=== PATIENT | female | born 1950 | race Caucasian/White ===

== ENCOUNTER 2016-12-12 11:58 | Inpatient (IN) | payer MEDICARE, BC ==
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
[2016-12-12] MEDS ORDERED: Adenosine 6 MG/2 ML SDV IVPUSH ONE (12:50)
[2016-12-12] MEDS ORDERED: Sodium Chloride 0.9% 1,000 ML IV ONE (13:00)
--- NOTE | 2016-12-12 13:34 | CR ---
Chest 2V INDICATION: atrial flutter, shortness of breath FINDINGS: Comparison 07/05/2013. Heart size is accentuated by portable AP technique. Old fracture defo rmity distal right clavicle. Chest otherwise negative.
[2016-12-12] MEDS ORDERED: Diltiazem 25 MG/5 ML SDV IVPUSH ONE (14:18)
[2016-12-12] MEDS ORDERED: Diltiazem 100 MG in Sodium Chloride 0.9% 100 ML IV SCH (14:30)
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
[2016-12-12] MEDS ORDERED: Magnesium Hydroxide 400 MG/5 ML Susp 30 ML Cup PO PRN (15:50)
[2016-12-12] MEDS ORDERED: Acetaminophen 325 MG Tab PO PRN (15:50)
[2016-12-12] MEDS ORDERED: Docusate Sodium 100 MG Cap PO PRN (15:50)
[2016-12-12] MEDS ORDERED: Zolpidem 5 MG Tab PO PRN (15:50)
[2016-12-12] MEDS ORDERED: Sodium Chloride 0.9% 10 ML Syringe FLUSH PRN (15:50)
[2016-12-12] MEDS ORDERED: oxyCODONE 5 MG Tab PO PRN (15:50)
[2016-12-12] MEDS ORDERED: Polyethylene Glycol 3350 Powder 17 GM Packet PO PRN (15:50)
[2016-12-12] MEDS ORDERED: Ondansetron 4 MG/2 ML SDV IV PRN (15:50)
[2016-12-12] MEDS ORDERED: Warfarin 2.5 MG Tab PO SCH ×2 (16:00→20:00)
--- NOTE | 2016-12-13 09:52 | PCM.DCSUM1 ---
Discharge Summary - Hospital Course Brief History: Ms. Campos is a 66-year-old woman who was admitted through the emergency department for further management of atrial flutter with 2-1 conduction and rapid ventricular response. - Discharge Data Discharge Date: 12/13/16 Discharge Disposition: Home, Self-Care 01 Condition: Good - Discharge Diagnosis/Problem(s) (1) Atrial flutter SNOMED Code(s): 1122350 ICD Code: I48.92 - UNSPECIFIED ATRIAL FLUTTER Status: Acute Priority: Medium Current Visit: Yes Qualifiers: Atrial flutter type: atypical Qualified Code(s): I48.4 - Atypical atrial flutter - Patient Summary/Data Hospital Course: Ms. Campos is a 66-year-old woman who's had a past history of difficulty with intermittent episodes of tachycardia. In the past these have occurred approximately 3 times per year but have never been documented on rhythm strips or with EKG. She was assumed to have atrial fibrillation and was started on oral anticoagulation with warfarin a few years ago. She felt well on the day prior to admission but early in the morning of admission when she awoke noted a rapid heart rate. After the rhythm continued at home and did not spontaneously convert she presented to the emergency department in the afternoon for further evaluation and management. On initial rhythm strips and EKG she was noted to have a rapid narrow complex rhythm. She was given a dose of adenocard which did slow the rhythm enough to determine that she was in atrial flutter. Options for management were discussed with the patient and she was admitted to the hospital and started on IV Cardizem infusion after Cardizem bolus. In the early evenings she spontaneously converted to sinus bradycardia after transient episode of junctional rhythm. She remained in sinus rhythm up until the time of discharge. She will remain on anticoagulation with warfarin, no further medications will be added at this time. Activity will be as tolerated and she will resume her usual diet. Follow-up appointment will be scheduled with her primary care provider Dr. Yeboah within 1 week and a follow-up appointment with her oreman will be scheduled as soon as possible. - Patient Instructions Diet: Usual Diet as Tolerated Activity: As Tolerated Other/Special Instructions: Please schedule follow-up appointment with Dr. Yeboah within 1 week. Please schedule follow-up appointment with cardiology as soon as possible. - Discharge Plan Home Medications: Home Meds Warfarin Sodium 1.5 mg PO DAILY #0 12/13/16 [Rx] Referrals: Wisam Yeboah MD [Primary Care Provider] - - Patient Data Vitals - Most Recent: Last Vital Signs Temp 98.7 F 12/13/16 00:00 Pulse 61 12/13/16 08:29 Resp 16 12/13/16 08:29 BP 122/77 12/13/16 08:54 Pulse Ox 96 12/13/16 08:29 Weight - Most Recent: 166 lb 10.711 oz I&O - Last 24 hours: Intake & Output 12/12/16 12/13/16 12/13/16 22:59 06:59 14:59 Intake Total 360 Output Total 200 Balance -200 360 Lab Results - Last 24 hrs: Laboratory Results - last 24 hr 12/13/16 12/13/16 12/13/16 Range/Units 04:32 04:32 04:32 WBC 7.2 (4.5-11.0) K/uL RBC 4.58 (3.30-5.50) M/uL Hgb 14.0 (12.0-15.0) g/dL Hct 41.9 (36.0-48.0) % MCV 92 (80-98) fL MCH 31 (27-31) pg MCHC 33 (32-36) % Plt Count 266 (150-400) K/uL Neut % (Auto) 53 (36-66) % Lymph % (Auto) 31 (24-44) % [place] % (Auto) 12 H (2-6) % Eos % (Auto) 3 (2-4) % Baso % (Auto) 1 (0-1) % PT 26.1 H (9.5-12.0) sec INR 2.35 H (0.80-1.20) Sodium 141 (140-148) mmol/L Potassium 3.8 (3.6-5.2) mmol/L Chloride 109 H (100-108) mmol/L Carbon Dioxide 24 (21-32) mmol/L Anion Gap 11.8 (5.0-14.0) mmol/L BUN 12 (7-18) mg/dL Creatinine 0.9 (0.6-1.0) mg/dL Est Cr Clr Drug Dosing TNP Estimated GFR (MDRD) > 60 (>60) Glucose 104 (74-106) mg/dL Calcium 8.3 L (8.5-10.1) mg/dL Med Orders - Current: Current Medications Acetaminophen (Tylenol) 650 mg PO Q4H PRN PRN Reason: Pain (Mild 1-3)/fever Last Admin: 12/12/16 16:18 Dose: 650 mg Docusate Sodium (Colace) 100 mg PO BID PRN PRN Reason: Constipation Diltiazem HCl 100 mg/ Sodium (Chloride) 100 mls @ 5 mls/hr IV TITRATE MAIKOL; 5 MG /HR PRN Reason: Protocol Last Titration: 12/12/16 17:35 Dose: 0 mg/hr, 0 mls/hr Magnesium Hydroxide (Milk Of Magnesia) 30 ml PO Q12H PRN PRN Reason: Constipation Ondansetron HCl (Zofran) 4 mg IV Q4H PRN PRN Reason: Nausea/Vomiting Oxycodone HCl (Oxycodone) 5 mg PO Q4H PRN PRN Reason: Pain (moderate 4-6) Polyethylene Glycol (Miralax) 17 gm PO DAILY PRN PRN Reason: Constipation Sodium Chloride (Saline Flush) 10 ml FLUSH ASDIRECTED PRN PRN Reason: Keep Vein Open Zolpidem Tartrate (Ambien) 5 mg PO BEDTIME PRN PRN Reason: Sleep Discontinued Medications Adenosine (Adenocard) 6 mg IVPUSH NOW ONE Stop: 12/12/16 12:51 Last Admin: 12/12/16 13:06 Dose: 6 mg Diltiazem HCl (Diltiazem) 20 mg IVPUSH ONETIME ONE Stop: 12/12/16 14:19 Last Admin: 12/12/16 14:53 Dose: 20 mg Sodium Chloride (Normal Saline) 1,000 mls @ 999 drops/hr IV .BOLUS ONE Stop: 12/13/16 04:00 Last Admin: 12/12/16 13:06 Dose: 999 drops/hr Warfarin Sodium (Coumadin) 7.5 mg PO DAILY@1999 MAIKOL Stop: 12/12/16 20:00 Warfarin Sodium (Coumadin) 1.5 mg PO ONETIME ONE Stop: 12/12/16 20:01 Last Admin: 12/12/16 20:20 Dose: 1.5 mg Warfarin Sodium (Coumadin) Confirm Administered Dose 1 mg .ROUTE .STK-MED ONE Stop: 12/12/16 20:30 Last Admin: 12/12/16 21:42 Dose: Not Given *Q Meaningful Use (DIS) - VTE *Q VTE Criteria *Q: VTE Pharmacological Contraindications *Q: High INR Value - Stroke *Q Stroke Criteria *Q: - AMI *Q AMI Criteria *Q:
[2016-12-13 10:49] VITALS: BP 130/70
== END 2016-12-13 10:48 | disposition home or self-care (01) | DRG 310 ==
LOC: JP.ED 11:58 → JP.ICU 14:28
PROVIDERS: ADMIT Hospitalist; ATTEND Hospitalist
DX: I48.4 Atypical atrial flutter (principal); Z79.01 Long term (current) use of anticoagulants; R00.0 Tachycardia, unspecified; Z86.73 Personal history of transient ischemic attack (TIA), and cerebral infarction without residual deficits; H54.7 Unspecified visual loss; Z88.1 Allergy status to other antibiotic agents; Z91.040 Latex allergy status; Z88.0 Allergy status to penicillin
CPT/HCPCS: 36415; 71020 ×2; 80053; 82553; 84443; 84484; 85025; 85610; 93005; J0153; J7040; 80048; 93010; 96365; 96374; 96375; 96376; 99284; 99285-25; A9270-GY; J3490; J7030

== ENCOUNTER 2020-06-22 16:58 | Emergency (ER) | payer MEDICARE, BC ==
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
[2020-06-22] MEDS ORDERED: Propofol 200 MG/20 ML SDV IVPUSH ONE (18:06)
[2020-06-22] MEDS ORDERED: Propofol 200 MG/20 ML SDV ONE (18:11)
[2020-06-22 18:35] VITALS: BP 99/64; PULSE 59
== END 2020-06-22 19:07 | disposition home or self-care (01) ==
LOC: JP.ED 16:58
DX: I48.91 Unspecified atrial fibrillation (principal); Z91.040 Latex allergy status; Z88.0 Allergy status to penicillin; Z88.1 Allergy status to other antibiotic agents; Z79.01 Long term (current) use of anticoagulants
CPT/HCPCS: 92960; 93010; 99284; J2704

== ENCOUNTER 2020-07-07 15:10 | Emergency (ER) | payer MEDICARE, BC ==
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
[2020-07-07 15:55] VITALS: BP 107/62; PULSE 57
== END 2020-07-07 16:01 | disposition home or self-care (01) ==
LOC: JP.ED 15:10
DX: I48.0 Paroxysmal atrial fibrillation (principal); Z91.040 Latex allergy status; Z88.0 Allergy status to penicillin; Z88.1 Allergy status to other antibiotic agents; Z79.01 Long term (current) use of anticoagulants; Z86.73 Personal history of transient ischemic attack (TIA), and cerebral infarction without residual deficits; Z90.49 Acquired absence of other specified parts of digestive tract; Z79.899 Other long term (current) drug therapy
CPT/HCPCS: 93005; 93010; 99284-25

== ENCOUNTER 2020-08-06 01:19 | Inpatient (IN) | payer MEDICARE, BC ==
[2020-08-06] MEDS ORDERED: Sodium Chloride 0.9% 10 ML Syringe FLUSH PRN ×2 (01:20→05:20)
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
[2020-08-06] MEDS ORDERED: Diltiazem 25 MG/5 ML SDV IVPUSH ONE (01:38)
[2020-08-06] MEDS ORDERED: Propofol 200 MG/20 ML SDV ONE (03:04)
[2020-08-06] MEDS ORDERED: Diltiazem 100 MG in Sodium Chloride 0.9% 100 ML IV SCH ×2 (03:15→05:30)
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
[2020-08-06] MEDS ORDERED: Ondansetron 4 MG/2 ML SDV IV PRN (05:20)
[2020-08-06] MEDS ORDERED: Polyethylene Glycol 3350 Powder 17 GM Packet PO PRN (05:20)
[2020-08-06] MEDS ORDERED: Acetaminophen 325 MG Tab PO PRN (05:20)
[2020-08-06] MEDS ORDERED: Sotalol 80 MG Tab PO SCH (09:00)
[2020-08-06] MEDS ORDERED: Warfarin 5 MG Tab PO SCH (09:00)
[2020-08-06] MEDS ORDERED: Warfarin 2.5 MG Tab PO ONE (10:00)
[2020-08-06 13:13] VITALS: BP 106/53
[2020-08-06 13:33] VITALS: PULSE 48
--- NOTE | 2020-08-06 14:06 | PCM.DCSUM1 ---
Discharge Summary - Hospital Course Brief History: Ms. Campos is a 70-year-old woman who was admitted through the emergency department with recurrent atrial fibrillation and rapid ventricular response. - Discharge Data Discharge Date: 08/06/20 Discharge Disposition: Home, Self-Care 01 Condition: Stable - Referral to Home Health Primary Care Physician: Wisam Yeboah MD - Discharge Diagnosis/Problem(s) (1) Atrial fibrillation with RVR SNOMED Code(s): 973265461331706 ICD Code: I48.91 - UNSPECIFIED ATRIAL FIBRILLATION Status: Acute Priority: High Current Visit: Yes (2) Paroxysmal atrial fibrillation SNOMED Code(s): 893622812 ICD Code: I48.0 - PAROXYSMAL ATRIAL FIBRILLATION Status: Acute Current Visit: No (3) On Coumadin for atrial fibrillation SNOMED Code(s): 17877704 ICD Code: I48.91 - UNSPECIFIED ATRIAL FIBRILLATION; Z79.01 - INSPECTOR PLUMBING (CURRENT) USE OF ANTICOAGULANTS Status: Chronic Priority: High Current Visit: Yes - Patient Summary/Data Hospital Course: Ms. Campos is a 70-year-old woman who was admitted through the emergency department with weakness, shortness of breath, and mild lightheadedness secondary to atrial fibrillation with rapid ventricular response. She has a previous history of atrial flutter and atrial fibrillation and is status post ablation procedure done in 2017. She did well for a year but then since then has had episodes of recurrent atrial fibrillation. This is her third episode over the past 2 months. She felt well throughout the day yesterday and went to bed. She woke early this morning at approximately 1 AM with rapid heart rate and noted symptoms. On evaluation in the emergency department she was found to be in atrial fibrillation with rapid ventricular response. 3 attempts at cardioversion were performed in the emergency department without success. She has been given a bolus dose of diltiazem and started on a continuous infusion of IV diltiazem. On admission she was continued on the IV diltiazem with somewhat variable rate control, rates continued to be intermittently elevated between 120 and 80. Later in the morning following admission she did convert to sinus bradycardia and remained in that rhythm up until the time of discharge. IV diltiazem was discontinued and rate did improve to the upper 40s and low 50s which is close to her baseline. Episode was reviewed with her EP paint laboratory technician from [facility]. He felt that there were no further good options for medical management. They are going to look at the schedule there and see if they can get her in earlier for her ablation procedure. Activity will be as tolerated and she will resume her usual diet. INR at the time of initial evaluation in the emergency department was subtherapeutic at 1.7. She will follow up with the Coumadin clinic on August 10. Follow-up appointment will be scheduled with her primary care provider within 1 week. - Patient Instructions Diet: Usual Diet as Tolerated Activity: As Tolerated Other/Special Instructions: Follow-up with Coumadin clinic on August 10. Follow-up with primary care provider within 1 week. EP cardiology will contact her concerning possible new date for ablation procedure. - Discharge Plan *PRESCRIPTION DRUG MONITORING PROGRAM REVIEWED*: Not Applicable *COPY OF PRESCRIPTION DRUG MONITORING REPORT IN PATIENT ALEXIS: Not Applicable Home Medications: Home Meds Sotalol HCl [Sotalol] 80 mg PO BID 06/22/20 [History] Warfarin Sodium 5 mg PO MOWEFR@0900 06/22/20 [History] Warfarin [Coumadin] 7.5 mg PO SUTUTHSA@0900 08/06/20 [History] Referrals: Wisam Yeboah MD [Primary Care Provider] - - Discharge Summary/Plan Comment DC Time >30 min.: No - Patient Data Vitals - Most Recent: Last Vital Signs Temp 97.6 F 08/06/20 12:00 Pulse 48 L 08/06/20 13:33 Resp 14 08/06/20 13:00 BP 106/53 L 08/06/20 13:33 Pulse Ox 95 08/06/20 13:00 Weight - Most Recent: 170 lb 6.677 oz I&O - Last 24 hours: Intake & Output 08/05/20 08/06/20 08/06/20 22:59 06:59 14:59 Output Total 350 Balance -350 Lab Results - Last 24 hrs: Laboratory Results - last 24 hr 08/06/20 08/06/20 08/06/20 Range/Units 01:31 01:31 01:31 WBC 7.4 (4.5-11.0) K/uL RBC 5.01 (3.30-5.50) M/uL Hgb 15.4 H (12.0-15.0) g/dL Hct 46.0 (36.0-48.0) % MCV 92 (80-98) fL MCH 31 (27-31) pg MCHC 34 (32-36) % Plt Count 307 (150-400) K/uL Neut % (Auto) 45 (36-66) % Lymph % (Auto) 40 (24-44) % [place] % (Auto) 13 H (2-6) % Eos % (Auto) 2 (2-4) % Baso % (Auto) 1 (0-1) % PT 18.3 H (9.5-12.0) sec INR 1.70 H (0.80-1.20) Sodium 140 (140-148) mmol/L Potassium 4.5 (3.6-5.2) mmol/L Chloride 105 (100-108) mmol/L Carbon Dioxide 24 (21-32) mmol/L Anion Gap 10.8 (5.0-14.0) mmol/L BUN 11 (7-18) mg/dL Creatinine 0.7 (0.6-1.0) mg/dL Est Cr Clr Drug Dosing 60.98 mL/min Estimated GFR (MDRD) > 60 (>60) Glucose 100 (74-106) mg/dL Calcium 9.1 (8.5-10.1) mg/dL Total Bilirubin 0.4 (0.2-1.0) mg/dL AST 35 (15-37) U/L ALT 26 (12-78) U/L Alkaline Phosphatase 122 H (46-116) U/L Troponin I < 0.017 (0.000-0.056) ng/mL Total Protein 7.5 (6.4-8.2) g/dL Albumin 3.7 (3.4-5.0) g/dL Globulin 3.8 H (2.3-3.5) g/dL Albumin/Globulin Ratio 1.0 L (1.2-2.2) Med Orders - Current: Current Medications Acetaminophen (Tylenol) 650 mg PO Q4H PRN PRN Reason: Pain (Mild 1-3)/fever Ondansetron HCl (Zofran) 4 mg IV Q4H PRN PRN Reason: Nausea/Vomiting Polyethylene Glycol (Miralax) 17 gm PO DAILY PRN PRN Reason: Constipation Sodium Chloride (Saline Flush) 10 ml FLUSH ASDIRECTED PRN PRN Reason: Keep Vein Open Sotalol HCl (Betapace) 80 mg PO BID MAIKOL Last Admin: 08/06/20 13:33 Dose: 80 mg Documented by: Discontinued Medications Diltiazem HCl (Diltiazem) 20 mg IVPUSH ONETIME ONE Stop: 08/06/20 01:39 Last Admin: 08/06/20 03:20 Dose: Not Given Documented by: Diltiazem HCl 100 mg/ Sodium (Chloride) 100 mls @ 5 mls/hr IV TITRATE MAIKOL; Protocol Last Titration: 08/06/20 04:38 Dose: 10 mg/hr, 10 mls/hr Documented by: Diltiazem HCl 100 mg/ Sodium (Chloride) 100 mls @ 5 mls/hr IV TITRATE MAIKOL; Protocol Propofol (Diprivan 20 Ml) Confirm Administered Dose 200 mg .ROUTE .STK-MED ONE Stop: 08/06/20 03:05 Sodium Chloride (Saline Flush) 10 ml FLUSH ASDIRECTED PRN PRN Reason: Keep Vein Open Last Admin: 08/06/20 03:19 Dose: 10 ml Documented by: Warfarin Sodium (Coumadin) 5 mg PO DAILY [facility] Warfarin Sodium (Coumadin) 7.5 mg PO ONETIME ONE Stop: 08/06/20 10:01 Last Admin: 08/06/20 10:02 Dose: 7.5 mg Documented by: - Exam Quality Assessment: Reports: DVT Prophylaxis General: Reports: Alert, Oriented, Cooperative, No Acute Distress Lungs: Reports: Clear to Auscultation, Normal Respiratory Effort Cardiovascular: Reports: Regular Rhythm, Bradycardia GI/Abdominal Exam: Soft, Non-Tender, No Organomegaly, No Distention Extremities: Non-Tender, No Pedal Edema *Q Meaningful Use (DIS) - VTE *Q VTE Pharmacological Contraindications *Q: High INR Value
== END 2020-08-06 15:20 | disposition home or self-care (01) | DRG 310 ==
LOC: JP.ED 01:19 → JP.ICU 04:50
PROVIDERS: ADMIT Hospitalist; ATTEND Hospitalist
DX: I48.0 Paroxysmal atrial fibrillation (principal); H54.7 Unspecified visual loss; E78.00 Pure hypercholesterolemia, unspecified; Z79.01 Long term (current) use of anticoagulants; Z91.040 Latex allergy status; Z88.0 Allergy status to penicillin; Z88.1 Allergy status to other antibiotic agents; Z86.73 Personal history of transient ischemic attack (TIA), and cerebral infarction without residual deficits
CPT/HCPCS: 36415; 80053; 84484; 85025; 85610; 92960; 93005; 93010; 96365; 99284; 99285; J2704; J3490; 99235; A9270-GY

== ENCOUNTER 2024-03-10 12:20 | Emergency (ER) | payer OTHER, MEDICARE, BC ==
[2024-03-10 13:09] VITALS: BP 159/80; PULSE 83
[2024-03-10] MEDS: Acetaminophen 500 MG Tab PO ONE (14:41)
== END 2024-03-10 16:17 | disposition home or self-care (01) ==
LOC: JP.ED 12:20
DX: S16.1XXA Strain of muscle, fascia and tendon at neck level, initial encounter (principal); Z91.040 Latex allergy status; Z88.0 Allergy status to penicillin; Z88.8 Allergy status to other drugs, medicaments and biological substances; Z79.01 Long term (current) use of anticoagulants; Z79.899 Other long term (current) drug therapy; V49.49XA Driver injured in collision with other motor vehicles in traffic accident, initial encounter; Y93.89 Activity, other specified; I48.91 Unspecified atrial fibrillation; E78.00 Pure hypercholesterolemia, unspecified; Z86.73 Personal history of transient ischemic attack (TIA), and cerebral infarction without residual deficits; Z90.49 Acquired absence of other specified parts of digestive tract
CPT/HCPCS: 72100; 72125; 73562; 76377; 99284; A9270; 99283